=== PATIENT | male | born 1960 | race Caucasian/White ===

== ENCOUNTER 2023-07-07 08:04 | Emergency (ER) | payer BC ==
[~2023-07-07] VITALS: Ht 165.1 cm; Wt 95.3 kg
[2023-07-07] MEDS ORDERED: TDAP [DIPH/PERTUSSIS/TET] 0.5 ML VIAL IM ONE ×2 (08:53→09:00)
[2023-07-07] MEDS ORDERED: LET SOLN TOPICAL 8 ML UDC TP ONE ×2 (09:55→10:00)
[2023-07-07] MEDS ORDERED: ACETAMINOPHEN 325 MG TABLET ONE (10:40)
[2023-07-07 10:52] VITALS: BP 108/73; TEMP 98.4; O2SAT 97
[2023-07-07] MEDS ORDERED: ACETAMINOPHEN 325 MG TABLET PO ONE (11:00)
== END 2023-07-07 10:53 | disposition home or self-care (01) ==
LOC: ER 08:04
DX: S01.01XA Laceration without foreign body of scalp, initial encounter (principal); I10 Essential (primary) hypertension; V03.90XA Pedestrian on foot injured in collision with car, pick-up truck or van, unspecified whether traffic or nontraffic accident, initial encounter; Y93.89 Activity, other specified; Y92.89 Other specified places as the place of occurrence of the external cause; Y99.8 Other external cause status
CPT/HCPCS: 70450-TC; 90715